=== PATIENT | female | born 2000 | race Caucasian/White ===

== ENCOUNTER → 2021-04-26 11:47 | Outpatient (BNVA) | payer OTHER, SELFPAY | PROVIDERS: PCP Nurse Practitioner Family; Visit Provider Nurse Practitioner Family | DX: I10 Essential (primary) hypertension (principal); D64.9 Anemia, unspecified; Z13.6 Encounter for screening for cardiovascular disorders; E55.9 Vitamin D deficiency, unspecified; J35.1 Hypertrophy of tonsils; D22.9 Melanocytic nevi, unspecified | CPT/HCPCS: 80053; 80061; 81003; 82306; 82728; 83550; 84439; 84443; 85025 ==

== ENCOUNTER → 2021-06-11 15:40 | Outpatient (BNVA) | payer OTHER, SELFPAY | PROVIDERS: PCP Nurse Practitioner Family; Visit Provider Specialist | DX: Z01.812 Encounter for preprocedural laboratory examination (principal); Z20.822 Contact with and (suspected) exposure to COVID-19 | CPT/HCPCS: 87635 ==

== ENCOUNTER 2021-06-15 06:08 | Day surgery (SDC) | payer OTHER, SELFPAY ==
[2021-06-14 14:13] VITALS: BMI 37.1
[2021-06-15] VITALS (12 sets, daily range): BP systolic 152–177; BP diastolic 83–98; PULSE 79–109; RESP 16–18; TEMP 36.2–36.7; O2SAT 94–99
--- NOTE | 2021-06-15 06:24 | ANES.PREANE2 ---
Pre-Anesthetic Assessment Pre-Anesthetic Assessment: Height/Weight: Height 1.68 m Weight 104.326 kg Proposed Procedure: Operation Date: 06/15/21 07:00 Proposed Procedures p Tonsillectomy 26895 J35.01(Bilateral) - Harrison Kessler MD Was Beta Ana taken within 24 hours: N/A Was Clonidine taken within 24 hours: N/A Social: Social History: No tobacco Exam: Pre-Anes Outpt Exam: alert, oriented x 3, clear to auscultation bilaterally and regular rate & rhythm Airway: Submandibular: WNL Cervical ROM: WNL MP: 2 History/ROS: No significant history except as noted and No significant complaints CV/HEM: CV/HEM: HTN Anesthetic Plan: ASA status: 2 Anesthesia: Anesthesia Evaluation and General Risk of > 500 ml blood loss (7ml/kg in children): No PFSH Anesthesia PFSH: Medical History Anemia Change in mole Essential hypertension, benign Screening for hypertension Tonsillar hypertrophy Vitamin D deficiency Surgical History H/O foot surgery H/O oral surgery Social History Smoking and tobacco status: never smoked Second hand smoke exposure: No Smoking risk assessment/counseling performed?: No Alcohol intake: never Desire information about alcohol rehabilitation?: No Counseling given: No Desire information about substance/drug rehabilitation?: No Counseling given: No Female Reproductive History: Para: 0 Spontaneous abortions: No Data Anesthesia Cardiac Studies: No Data to Display
[2021-06-15 06:25] LABS: OR HCG Qualitative Urine Negative (Negative)
[2021-06-15] MEDS: scopolamine 1.5 Patch 1 PATCH TRANSDERMA (06:30)
[2021-06-15] MEDS: sodium chloride 0.9% 1,000 ML 30 ML IV (06:45)
--- NOTE | 2021-06-15 06:50 | W.PM.OPSUD ---
Surgery/Procedure H&P Update DATE OF PROCEDURE: June 15, 2021 DATE H&P PERFORMED: 05/24/21 H&P UPDATE INFORMATION: I have reviewed H&P completed within last 30 days, I have examined patient prior to procedure and No changes to prior documentation PREOP DIAGNOSIS: Chronic Tonsillitis with tonsilloliths PRIMARY INDICATION FOR PROCEDURE: Chronic tonsillitis with tonsilloliths PLANNED PROCEDURE: Operation Date: 06/15/21 07:00 Proposed Procedures p Tonsillectomy 64110 J35.01(Bilateral) - Harrison Kessler MD
[2021-06-15 06:55] LABS: Basophils # 0.1 10^3/uL (0.0-0.1); Basophils % 0.6 %; Eosinophils # 0.2 10^3/uL (0.0-0.8); Eosinophils % 2.5 %; Hemoglobin 13.5 g/dL (11.5-15.3); Lymphocytes # 2.4 10^3/uL (0.8-4.8); Lymphocytes % 31.3 %; Mean Corpuscular HGB Conc 34.6 g/dL (30.0-36.0); Mean Corpuscular Hemoglobin 29.3 pg (28.0-34.0); Mean Corpuscular Volume 84.6 fl (81-99); Mean Platelet Volume 10.3 fL (7.4-10.4); Monocytes # 0.7 10^3/uL (0.2-0.9); Monocytes % 9.1 %; Neutrophils # 4.35 10^3/uL (1.8-7.7); Neutrophils % 56.4 %; Nucleated Red Blood Cells % 0 %; Platelet Count 276 10^3/cmm (130-400); Red Blood Count 4.61 10^6/uL (4.1-5.3); Red Cell Distribution Width 12.4 % (12.1-15.1); White Blood Count 7.7 10^3/uL (4.0-10.0)
--- NOTE | 2021-06-15 08:01 | PM.OP ---
Operative Report Date of procedure: June 15, 2021 Pre-op Diagnosis: Chronic Tonsillitis with tonsilloliths Post-op diagnosis: same Post-op Findings: 3+ tonsils bilaterally Procedure Done: Bilateral tonsillectomy Implants: None Specimens removed/disposition: None - tonsils ablated Pathology: none sent Surgeon: Harrison Kessler Microbiology Lab Assistant: Candis Carlos Anesthesia: General Estimated blood loss (mL): 5 IV fluids (mL): 700 Urine output (mL): 0 Complications: None Findings: 3+ tonsils bilaterally O/W normal oral cavity exam Condition: stable Disposition: PACU Brief History: 21 yo wf with a h/o chronic tonsillitis with tonsilloliths who desires surgical therapy. Procedure: The patient was identified in the preoperative holding area and was taken to the operating room where she was placed on the operating table in the supine position. Anesthesia was obtained with general endotracheal anesthesia and the table was turned 90 degrees to the patient's left. The patient was then prepped and draped in the usual sterile fashion and a McIvor mouthgag was placed atraumatically in the patient's oral cavity. The patient was then suspended in the Chen position. An inspection was then carried out of the patient's oral cavity and oropharynx with findings noted above. At this point the right and left tonsils were removed/ablated using the Coblation wand down to the tonsillar capsule as an intracapsular tonsillectomy. Hemostasis was achieved with Coblation cautery and suction cautery. At this point the patient's oral cavity was irrigated with a copious amount of normal saline and the wounds were inspected for hemostasis which was found to be adequate. At this point the patient was taken off suspension, the mouthgag was atraumatically released and removed, and the procedure was terminated. Control of the patient was returned to anesthesia where she underwent an uneventful reversal of anesthesia and extubation and was taken to the recovery room in stable condition. There were no operative or anesthetic complications.
[2021-06-15] MEDS: fentaNYL 50 mcg/mL INJ 2mL IVP (08:17)
[2021-06-15] MEDS: HYDROcodone-APAP 7.5-325 mg/15 mL UDC PO (09:00)
--- NOTE | 2021-06-15 09:19 | ANE.PACU2 ---
Inpatient post-anesthesia follow up: Airway intact: Yes Vital signs: Temperature 97.6 F Pulse Rate 79 Respiratory Rate 18 Blood Pressure 177/86 Pulse Oximetry 96 Oxygen Delivery Me thod Room Air Oxygen Flow Rate Fraction of Inspir ed Oxygen Hydration adequate: Yes Nausea and vomiting: No Pain level: 2 Mental status: Baseline
== END 2021-06-15 09:44 | disposition home or self-care (01) ==
PROVIDERS: Anesthesiology; PCP Nurse Practitioner Family; Visit Provider Specialist
PROC: (CPT 42826; principal; 2021-06-15 07:00)
DX: J35.01 Chronic tonsillitis (principal); D64.9 Anemia, unspecified; I10 Essential (primary) hypertension
CPT/HCPCS: 42826; 12345; 36415; 84703; 85025; J1100; J1200; J2250; J2270; J2370; J2405; J2704; J2710; J3010; J3490; J7030

== ENCOUNTER → 2022-01-31 08:20 | Outpatient (BNVA) | payer OTHER, SELFPAY | PROVIDERS: PCP Nurse Practitioner Family; Visit Provider Obstetrics & Gynecology Hospice and Palliative Medicine | DX: I10 Essential (primary) hypertension (principal); Z79.899 Other long term (current) drug therapy | CPT/HCPCS: 80053; 80061; 83036; 84443; 85025 ==